=== PATIENT | male | born 1995 | race Two or more races ===

== ENCOUNTER 2016-08-30 19:44 | Emergency (ER) | payer MEDICAID ==
[2016-08-30] MEDS ORDERED: Ondansetron 4 MG/2 ML SDV IVPUSH ONE (20:28)
[2016-08-30] MEDS ORDERED: HYDROmorphone 1 MG/ML Syringe IVPUSH ONE ×2 (20:28→22:06)
[2016-08-30] MEDS ORDERED: Sodium Chloride 0.9% 1,000 ML IV SCH (20:30)
--- NOTE | 2016-08-30 22:13 | EDM.PDOC ---
ED HPI GENERAL MEDICAL PROBLEM - General Chief Complaint: Back Pain or Injury Stated Complaint: BACK PAIN Time Seen by Provider: 08/30/16 19:47 Source of Information: Reports: Patient History Limitations: Reports: No limitations - History of Present Illness INITIAL COMMENTS - FREE TEXT/NARRATIVE: acute low back pain; this is a 21 year old male present to ER for evaluation of back pain. He reports about one month ago, slipped and fell on the ice. Has been seen by his Primary Care Provider, has Physical Therapy order and pending MRI. This morning, bent over to burr picker a paper, felt a pop in his back, has been in terrible pain ever since. Onset: sudden (felt back "pop") Duration: Getting worse Location: Reports: back Quality: Reports: Sharp, Throbbing Severity: severe Improves with: Reports: Rest Worsens with: Reports: Movement Context: Reports: Other (fall on ice one month ago) Treatments DISPENSING OPTICIAN: Reports: Acetaminophen Lower Back Pain Score (Numeric/FACES): 9 - Related Data Allergies Allergy/AdvReac Type Severity Reaction Status Date / Time No Known Allergies Allergy Verified 08/30/16 20:00 Home Meds: Home Meds Prazosin [Minpress] 2 mg PO DAILY 06/10/16 [History] Sertraline [Zoloft] 50 mg PO DAILY 06/10/16 [History] traZODone 50 mg PO BEDTIME 06/10/16 [History] Melatonin 10 mg PO BEDTIME 08/30/16 [History] Orphenadrine [Norflex] 100 mg PO BID 08/30/16 [History] Past Medical History HEENT History: Reports: Other (see below) Other HEENT History: chronic strep throat Cardiovascular History: Reports: Other (see below) 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 Respiratory History: Reports: Sleep apnea, Other (see below) Other Respiratory History: deflated lung Musculoskeletal History: Reports: Fracture Other Musculoskeletal History: thumb Neurological History: Reports: Concussion Psychiatric History: Reports: Anxiety, Depression, Psych Hospitalization(s), Psychosis, PTSD, Suicide attempt, Suicidal ideation, Other (see below) Other Psychiatric History: [address] [facility], currently seeing a counselor at [facility] - Infectious Disease History Infectious Disease History: Reports: Chicken pox, Measles, Mononucleosis Social & Family History - Tobacco Use Smoking Status *Q: Current Every Day Smoker Years of Tobacco use: 5 Packs/Tins Daily: 0.5 - Caffeine Use Caffeine Use: Reports: Soda - Recreational Drug Use Recreational Drug Use: Yes Drug Use in Last 12 Months: Yes Recreational Drug Type: Reports: Marijuana/Hashish Recreational Drug Use Frequency: Rarely - Living Situation & Occupation Living situation: Reports: single, with family (lives with his Mother and family ) Occupation: unemployed ED ROS GENERAL - Review of Systems Review Of Systems: See Below Constitutional: Reports: other (Back pain) HEENT: Reports: No symptoms Respiratory: Reports: No Symptoms Cardiovascular: Reports: No symptoms Endocrine: Reports: no symptoms GI/Abdominal: Reports: No symptoms : Reports: no symptoms Musculoskeletal: Reports: back pain (Radiates to low abdomen and upper thighs reports tingling sensation), muscle pain Skin: Reports: no symptoms Neurological: Reports: No Symptoms, Difficulty Walking (Secondary to pain) Psychiatric: Reports: No symptoms Hematologic/Lymphatic: Reports: no symptoms Immunologic: Reports: no symptoms ED EXAM, GENERAL - Physical Exam Exam: See Below General Appearance: alert, WD/WN, severe distress (Laying curled up on his side on stretcher, when standing body tremors and shakes and appears to be in acute pain), thin Ears: normal external exam Nose: normal inspection Throat/Mouth: Normal inspection Head: atraumatic, normocephalic Neck: normal inspection, supple, non-tender, full range of motion Respiratory/Chest: no respiratory distress, lungs clear, normal breath sounds, no accessory muscle use, chest non-tender Cardiovascular: regular rate, rhythm, no edema, no murmur GI/Abdominal: normal bowel sounds, soft, non tender (Male) Exam: Deferred Rectal (Males) Exam: Deferred Back Exam: decreased range of motion, muscle spasm, paraspinal tenderness, vertebral tenderness Extremities: normal inspection, normal capillary refill, other (Increased pain with straight leg lift) Neurological: alert, oriented, normal reflexes ( 2+ patellar reflexes), abnormal gait (Due to pain) Psychiatric: normal affect, normal mood Skin Exam: Warm, Dry, Intact, Normal color, No rash Lymphatic: no adenopathy Course - Vital Signs Last Recorded V/S: Last Vital Signs Temp 37.0 C 08/30/16 20:15 Pulse 66 08/30/16 22:19 Resp 18 04/20/17 22:19 BP 115/66 04/20/17 22:19 Pulse Ox 99 08/30/16 22:19 - Orders/Labs/Meds Orders: Active Orders 24 hr Category Date Time Status Lumbar Spine wo Cont [CT] Stat Exams 08/30/16 20:29 Taken Labs: Laboratory Tests 08/30/16 08/30/16 Range/Units 21:20 21:20 Urine Color Yellow Urine Appearance Clear Urine pH 8.0 (4.5-8.0) Ur Specific [place] 1.015 (1.008-1.030) Urine Protein Negative (NEGATIVE) mg/dL Urine Glucose (UA) Normal (NEGATIVE) mg/dL Urine Ketones Negative (NEGATIVE) mg/dL Urine Occult Blood Negative (NEGATIVE) Urine Nitrite Negative (NEGAITVE) Urine Bilirubin Negative (NEGATIVE) Urine Urobilinogen Normal (NORMAL) mg/dL Ur Leukocyte Esterase Negative (NEGATIVE) Urine RBC 0-5 (0-5) Urine WBC 0-5 (0-5) Ur Epithelial Cells Rare Amorphous Sediment Rare Urine Bacteria Rare Urine Mucus Few Urine Opiates Screen Negative (NEGATIVE) Ur Oxycodone Screen Negative (NEGATIVE) Urine Methadone Screen Negative (NEGATIVE) Ur Propoxyphene Screen Negative (NEGATIVE) Ur Barbiturates Screen Negative (NEGATIVE) Ur Tricyclics Screen Negative (NEGATIVE) Ur Phencyclidine Scrn Negative (NEGATIVE) Ur Amphetamine Screen Negative (NEGATIVE) U Methamphetamines Scrn Negative (NEGATIVE) Urine MDMA Screen Negative (NEGATIVE) U Benzodiazepines Scrn Negative (NEGATIVE) U Cocaine Metab Screen Negative (NEGATIVE) U Marijuana (THC) Screen Negative (NEGATIVE) Meds: Medications Discontinued Medications Generic Name Dose Route Start Last Admin Trade Name Shira PRN Reason Stop Dose Admin Hydromorphone HCl 1 mg 08/30/16 20:28 08/30/16 20:44 Dilaudid IVPUSH 08/30/16 20:29 1 mg ONETIME ONE Administration Hydromorphone HCl 1 mg 08/30/16 22:06 08/30/16 22:17 Dilaudid IVPUSH 08/30/16 22:07 1 mg ONETIME ONE Administration Sodium Chloride 1,000 mls @ 500 mls/hr 08/30/16 20:30 08/30/16 20:45 Normal Saline IV 500 mls/hr ASDIRECTED STEVEN Administration Ondansetron HCl 4 mg 08/30/16 20:28 08/30/16 20:44 Zofran IVPUSH 08/30/16 20:29 4 mg ONETIME ONE Administration - Radiology Interpretation Free Text/Narrative:: CT of lumbar spine -No acute lumbar spine fracture. Diffuse disc bulge and superimposed central protrusion suspected at L5-S1. This may a bit the adjacent descending nerve roots. Followup nonemergent MRI could be considered for further evaluation. Review of report of CT scan with patient and his mother, copy given for their records. Departure - Departure Time of Disposition: 22:49 Disposition: Home, Self-Care 01 Condition: good Clinical Impression: Bulging lumbar disc Instructions: Back Pain, Adult Referrals: Zac Agrawal MD [Primary Care Provider] - Forms: ED Department Discharge Care Plan Goals: Bulging lumbar disc -Medicate for pain; Percocet one to 2 every 4-6 when necessary pain, ibuprofen or Motrin [id number] 600 mg every 8 hours when necessary pain, Flexeril 10 mg one every 8 hours as needed for muscle spasm, Medrol Dosepak as directed for inflammation -Advised no bending lifting or twisting of spine -Avoid any high impact sports or activities -Will need to followup with primary care provider for a recheck -Return to ER for any increased pain, fever, loss of bowel or bladder function, increased pain or any concerns Given copy of CT lumbar spine, Reviewed with him and his family. - Problem List & Annotations (1) Bulging lumbar disc SNOMED Code(s): 146414016 Code(s): M51.26 - OTHER INTERVERTEBRAL DISC DISPLACEMENT, LUMBAR REGION Status: Acute Priority: High - Problem List Review Problem List Initiated/Reviewed/Updated: Yes - My Orders Last 24 Hours: My Active Orders 08/30/16 20:29 Lumbar Spine wo Cont [CT] Stat - Assessment/Plan Last 24 Hours: My Active Orders 08/30/16 20:29 Lumbar Spine wo Cont [CT] Stat Plan: Bulging lumbar disc -Medicate for pain; Percocet one to 2 every 4-6 when necessary pain, ibuprofen or Motrin [id number] 600 mg every 8 hours when necessary pain, Flexeril 10 mg one every 8 hours as needed for muscle spasm, Medrol Dosepak as directed for inflammation -Advised no bending lifting or twisting of spine -Avoid any high impact sports or activities -Will need to followup with primary care provider for a recheck -Return to ER for any increased pain, fever, loss of bowel or bladder function, increased pain or any concerns Given copy of CT lumbar spine, Reviewed with him and his family.
[2016-08-30 22:20] VITALS: BP 115/66
== END 2016-08-30 22:49 | disposition home or self-care (01) ==
LOC: JP.ED 19:44
DX: M51.26 Other intervertebral disc displacement, lumbar region (principal); F17.210 Nicotine dependence, cigarettes, uncomplicated; Z79.899 Other long term (current) drug therapy
CPT/HCPCS: 72131; 80305; 81001; 96361; 96374; 96375; 96376; 99284; J1170; J2405; J7040

== ENCOUNTER 2018-05-31 16:21 | Emergency (ER) | payer MEDICAID ==
[2018-05-31 16:49] VITALS: BP 131/88
[2018-05-31] MEDS ORDERED: Lidocaine 1% with EPINEPHrine 1:100,000 50 ML MDV INFILT ONE (17:14)
[2018-05-31] MEDS ORDERED: Diphtheria,Pertussis(Acell),Tetanus Vaccine 0.5 ML SDV IM ONE (17:28)
[2018-05-31] MEDS ORDERED: Bacitracin Oint 1 GM U/D Packet TOP ONE (17:29)
--- NOTE | 2018-05-31 17:33 | EDM.PDOC ---
ED HPI GENERAL MEDICAL PROBLEM - General Chief Complaint: Laceration Stated Complaint: CUT FINGER Time Seen by Provider: 05/31/18 17:10 Source of Information: Reports: Patient History Limitations: Reports: No Limitations - History of Present Illness INITIAL COMMENTS - FREE TEXT/NARRATIVE: 23-year-old male cut his index finger of his left hand. This happened 5 hours ago but it is still bleeding so he wanted it checked. 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 Respiratory History: Reports: Sleep Apnea, Other (See Below) Other Respiratory History: deflated lung Musculoskeletal History: Reports: Fracture Other Musculoskeletal History: thumb Neurological History: Reports: Concussion Psychiatric History: Reports: Anxiety, Depression, Psych Hospitalization(s), Psychosis, PTSD, Suicide Attempt, Suicidal Ideation, Other (See Below) Other Psychiatric History: 2011 [place] [facility], currently seeing a counselor at [facility] - Infectious Disease History Infectious Disease History: Reports: Chicken Pox, Measles, Mononucleosis Social & Family History - Tobacco Use Smoking Status *Q: Heavy Tobacco Smoker Years of Tobacco use: 6 Packs/Tins Daily: 0.3 - Caffeine Use Caffeine Use: Reports: Soda - Recreational Drug Use Recreational Drug Use: No - Living Situation & Occupation Living situation: Reports: Single, with Family Occupation: Unemployed ED ROS GENERAL - Review of Systems Review Of Systems: See Below Constitutional: Denies: Fever Respiratory: Denies: Shortness of Breath Cardiovascular: Denies: Chest Pain GI/Abdominal: Denies: Abdominal Pain, Nausea, Vomiting ED EXAM, SKIN/RASH Exam: See Below Exam Limited By: No Limitations General Appearance: Alert, No Apparent Distress Respiratory/Chest: No Respiratory Distress Extremities: Other (Patient's left index finger has a 1 x 1 cm evulsion off the pulp, shallow but into the subcutaneous tissue enough to cause persistent bleeding) Psychiatric: Anxious Course - Vital Signs Last Recorded V/S: Last Vital Signs Temp 98.1 F 05/31/18 16:49 Pulse 65 05/31/18 16:49 Resp 18 05/31/18 16:49 BP 131/88 05/31/18 16:49 Pulse Ox 95 05/31/18 16:49 - Orders/Labs/Meds Orders: Active Orders 24 hr Category Date Time Status Vaccines to be Administered [RC] PER UNIT ROUTINE Care 05/31/18 17:29 Active Meds: Medications Discontinued Medications Generic Name Dose Route Start Last Admin Trade Name Shira PRN Reason Stop Dose Admin Bacitracin 1 dose 05/31/18 17:29 05/31/18 17:34 Bacitracin Oint 1 Gm TOP 05/31/18 17:30 1 dose ONETIME ONE Administration Diphtheria/Tetanus/Acell Pertussis 0.5 ml 05/31/18 17:28 05/31/18 17:33 Adacel IM 05/31/18 17:29 0.5 ml .ONCE ONE Administration Lidocaine/Epinephrine 30 ml 05/31/18 17:14 05/31/18 17:18 Xylocaine 1% With Epinephrine 1:100,000 INFILT 05/31/18 17:15 30 ml ONETIME ONE Administration - Re-Assessments/Exams Free Text/Narrative Re-Assessment/Exam: 05/31/18 17:33 The area was infiltrated with 1% lidocaine with epinephrine, and cauterized until bleeding was controlled. Topical bacitracin and it tube gauze was placed on the finger to be kept until tomorrow. He was also given a DPT booster. He'll keep the wound covered and clean while healing. Departure - Departure Time of Disposition: 17:58 Disposition: Home, Self-Care 01 Condition: Good Clinical Impression: Laceration of finger of left hand Qualifiers: Encounter type: initial encounter Finger: index finger Damage to nail status: without damage Foreign body presence: without foreign body Qualified Code(s): S61.211A - Laceration without foreign body of left index finger without damage to nail, initial encounter - Discharge Information Instructions: Laceration Care, Adult, [id number] Referrals: PCP,None [Primary Care Provider] - Forms: ED Department Discharge Care Plan Goals: Keep wound covered and clean while healing. Recheck if concerns of infection or not healing satisfactorily. - My Orders Last 24 Hours: My Active Orders 05/31/18 17:29 Vaccines to be Administered [RC] PER UNIT ROUTINE - Assessment/Plan Last 24 Hours: My Active Orders 05/31/18 17:29 Vaccines to be Administered [RC] PER UNIT ROUTINE
== END 2018-05-31 17:58 | disposition home or self-care (01) ==
LOC: JP.ED 16:21
DX: S61.211A Laceration without foreign body of left index finger without damage to nail, initial encounter (principal); F17.210 Nicotine dependence, cigarettes, uncomplicated; W45.8XXA Other foreign body or object entering through skin, initial encounter; Z91.030 Bee allergy status; Z91.018 Allergy to other foods; Z79.899 Other long term (current) drug therapy; Z23 Encounter for immunization
CPT/HCPCS: 12001; 90715; 99283-25

== ENCOUNTER 2018-08-05 20:43 | Emergency (ER) | payer MEDICAID ==
[2018-08-05 21:04] VITALS: BP 128/87
--- NOTE | 2018-08-05 21:27 | EDM.PDOC ---
ED HPI GENERAL MEDICAL PROBLEM - General Chief Complaint: Abdominal Pain Stated Complaint: ABD ISSUES Time Seen by Provider: 08/05/18 21:15 Source of Information: Reports: Patient, RN Notes Reviewed History Limitations: Reports: No Limitations - History of Present Illness INITIAL COMMENTS - FREE TEXT/NARRATIVE: 23-year-old gentleman presents emergency department today complaint of abdominal pain, he states he's had pain for about 2 weeks however it is progressively getting worse over the last 3 days does have some nausea he still passing gas his bowel movements range from normal to loose watery stools denies any other symptoms Abdominal Pain Score (Numeric/FACES): 3 - Related Data Allergies Allergy/AdvReac Type Severity Reaction Status Date / Time bee venom protein (honey bee) Allergy Swelling Verified 08/05/18 21:06 blueberry Allergy Hives Verified 08/05/18 21:06 Home Meds: Home Meds Prazosin [Minpress] 2 mg PO DAILY 06/10/16 [History] Past Medical History HEENT History: Reports: Other (See Below) Other HEENT History: chronic strep throat Cardiovascular History: Reports: Other (See Below) Other Cardiovascular History: Pericarditis Respiratory History: Reports: Sleep Apnea, Other (See Below) Other Respiratory History: deflated lung Musculoskeletal History: Reports: Fracture Other Musculoskeletal History: thumb, wrist left Neurological History: Reports: Concussion Psychiatric History: Reports: Anxiety, Depression, Psych Hospitalization(s), Psychosis, PTSD, Suicide Attempt, Suicidal Ideation, Other (See Below) Other Psychiatric History: 2011 [facility], currently seeing a counselor at [facility] - Infectious Disease History Infectious Disease History: Reports: Measles Social & Family History - Family History Family Medical History: Noncontributory - Tobacco Use Smoking Status *Q: Current Every Day Smoker Years of Tobacco use: 5 Packs/Tins Daily: 0.5 - Caffeine Use Caffeine Use: Reports: Coffee, Soda - Recreational Drug Use Recreational Drug Use: Yes Recreational Drug Type: Reports: Marijuana/Hashish - Living Situation & Occupation Living situation: Reports: Single, with Family Occupation: Unemployed ED ROS GENERAL - Review of Systems Review Of Systems: See Below Constitutional: Reports: No Symptoms HEENT: Reports: No Symptoms Respiratory: Reports: No Symptoms Cardiovascular: Reports: No Symptoms GI/Abdominal: Reports: Abdominal Pain, Diarrhea, Flatus, Nausea. Denies: Constipation, Vomiting : Reports: No Symptoms Musculoskeletal: Reports: No Symptoms Skin: Reports: No Symptoms ED EXAM, GI/ABD - Physical Exam Exam: See Below Exam Limited By: No Limitations General Appearance: Alert, WD/WN, No Apparent Distress Respiratory/Chest: No Respiratory Distress, Lungs Clear, Normal Breath Sounds, No Accessory Muscle Use Cardiovascular: Regular Rate, Rhythm, No Murmur GI/Abdominal Exam: Normal Bowel Sounds, Soft, Non-Tender, No Organomegaly, No Distention, No Abnormal Bruit, No Mass. No: Tender Course - Vital Signs Last Recorded V/S: Last Vital Signs Temp 96.9 F 08/05/18 21:07 Pulse 63 08/05/18 21:07 Resp 14 08/05/18 21:07 BP 128/87 08/05/18 21:07 Pulse Ox 100 08/05/18 21:07 - Orders/Labs/Meds Labs: Laboratory Tests 08/05/18 08/05/18 08/05/18 Range/Units 21:37 21:37 21:37 WBC 11.4 H (4.5-11.0) K/uL RBC 5.32 (4.30-5.90) M/uL Hgb 15.2 H (12.0-15.0) g/dL Hct 45.6 (40.0-54.0) % MCV 86 (80-98) fL MCH 29 (27-31) pg MCHC 33 (32-36) % Plt Count 195 (150-400) K/uL Neut % (Auto) 70 H (36-66) % Lymph % (Auto) 21 L (24-44) % Stevens % (Auto) 9 H (2-6) % Eos % (Auto) 1 L (2-4) % Baso % (Auto) 0 (0-1) % Sodium 140 (140-148) mmol/L Potassium 3.5 L (3.6-5.2) mmol/L Chloride 102 (100-108) mmol/L Carbon Dioxide 31 (21-32) mmol/L Anion Gap 10.5 (5.0-14.0) mmol/L BUN 11 (7-18) mg/dL Creatinine 1.1 (0.8-1.3) mg/dL Est Cr Clr Drug Dosing 86.41 mL/min Estimated GFR (MDRD) > 60 (>60) Glucose 100 (74-106) mg/dL Lactic Acid 1.4 (0.4-2.0) mmol/L Calcium 9.4 (8.5-10.1) mg/dL Total Bilirubin 0.8 (0.2-1.0) mg/dL AST 15 (15-37) U/L ALT 21 (12-78) U/L Alkaline Phosphatase 80 (46-116) U/L Total Protein 7.7 (6.4-8.2) g/dL Albumin 4.2 (3.4-5.0) g/dL Globulin 3.5 (2.3-3.5) g/dL Albumin/Globulin Ratio 1.2 (1.2-2.2) Lipase 79 (73-393) U/L Urine Color Urine Appearance Urine pH (4.5-8.0) Ur Specific [place] (1.008-1.030) Urine Protein (NEGATIVE) mg/dL Urine Glucose (UA) (NEGATIVE) mg/dL Urine Ketones (NEGATIVE) mg/dL Urine Occult Blood (NEGATIVE) Urine Nitrite (NEGAITVE) Urine Bilirubin (NEGATIVE) Urine Urobilinogen (NORMAL) mg/dL Ur Leukocyte Esterase (NEGATIVE) Urine RBC (0-5) Urine WBC (0-5) Ur Epithelial Cells Amorphous Sediment Urine Bacteria Urine Mucus 08/05/18 Range/Units 21:43 WBC (4.5-11.0) K/uL RBC (4.30-5.90) M/uL Hgb (12.0-15.0) g/dL Hct (40.0-54.0) % MCV (80-98) fL MCH (27-31) pg MCHC (32-36) % Plt Count (150-400) K/uL Neut % (Auto) (36-66) % Lymph % (Auto) (24-44) % Stevens % (Auto) (2-6) % Eos % (Auto) (2-4) % Baso % (Auto) (0-1) % Sodium (140-148) mmol/L Potassium (3.6-5.2) mmol/L Chloride (100-108) mmol/L Carbon Dioxide (21-32) mmol/L Anion Gap (5.0-14.0) mmol/L BUN (7-18) mg/dL Creatinine (0.8-1.3) mg/dL Est Cr Clr Drug Dosing mL/min Estimated GFR (MDRD) (>60) Glucose (74-106) mg/dL Lactic Acid (0.4-2.0) mmol/L Calcium (8.5-10.1) mg/dL Total Bilirubin (0.2-1.0) mg/dL AST (15-37) U/L ALT (12-78) U/L Alkaline Phosphatase (46-116) U/L Total Protein (6.4-8.2) g/dL Albumin (3.4-5.0) g/dL Globulin (2.3-3.5) g/dL Albumin/Globulin Ratio (1.2-2.2) Lipase (73-393) U/L Urine Color [place] Urine Appearance Clear Urine pH 5.0 (4.5-8.0) Ur Specific [place] 1.010 (1.008-1.030) Urine Protein Negative (NEGATIVE) mg/dL Urine Glucose (UA) Normal (NEGATIVE) mg/dL Urine Ketones Negative (NEGATIVE) mg/dL Urine Occult Blood Trace (NEGATIVE) Urine Nitrite Negative (NEGAITVE) Urine Bilirubin Negative (NEGATIVE) Urine Urobilinogen Normal (NORMAL) mg/dL Ur Leukocyte Esterase Negative (NEGATIVE) Urine RBC 0-5 (0-5) Urine WBC 0-5 (0-5) Ur Epithelial Cells Rare Amorphous Sediment Rare Urine Bacteria Not seen Urine Mucus Rare Departure - Departure Time of Disposition: 22:39 Disposition: Home, Self-Care 01 Condition: Fair Clinical Impression: Abdominal pain Qualifiers: Abdominal location: generalized Qualified Code(s): R10.84 - Generalized abdominal pain - Discharge Information Referrals: PCP,None [Primary Care Provider] - Forms: ED Department Discharge Additional Instructions: Recommend trying Zantac [id number] as needed for a couple days to see if it makes any difference in the abdominal pain, recommend follow-up with primary care the next 5-7 days for reevaluation - Assessment/Plan Plan: Assessment Acuity = acute Site and laterality = abdominal pain Etiology = unclear etiology Manifestations = none Location of injury = Home Lab values = CBC, CMP, lactic acid, lipase, urinalysis all within normal limits plain film the abdomen shows normal bowel gas pattern Plan I did review lab work and abdominal x-rays with him best to follow-up with his primary care the next 5-7 days for reevaluation and continue the workup of abdominal pain he is going to try Zantac [id number] to see if it makes any difference This note was dictated using [employer] voice recognition software please call with any questions on syntax or grammar.
--- NOTE | 2018-08-05 21:51 | CRLCR ---
INDICATION: Pain. TECHNIQUE: Single upright view of the abdomen and upper pelvis. FINDINGS: No free air. Normal abdominal situs. Scattered gas and stool throughout portions of the colon. Paucity of small bowel gas. No radiodense urinary tract calculi. Rotatory lumbar scoliotic curvature convex towards the right. Calcified splenic granulomas. IMPRESSION: Nonspecific bowel gas pattern without obstruction or ileus. No free air. Dictated by Rony Hunter MD @ Aug 05 2018 9:48PM Signed by Dr. Rony Hunter @ Aug 05 2018 9:49PM
== END 2018-08-05 22:46 | disposition home or self-care (01) ==
LOC: JP.ED 20:43
DX: R10.84 Generalized abdominal pain (principal); F17.210 Nicotine dependence, cigarettes, uncomplicated; Z91.030 Bee allergy status; Z91.018 Allergy to other foods
CPT/HCPCS: 36415; 74018; 80053; 81001; 83605; 83690; 85025; 99284-25

== ENCOUNTER 2018-12-14 13:34 | Emergency (ER) | payer MEDICAID ==
[2018-12-14 14:29] VITALS: BP 136/83; PULSE 64
[2018-12-14] MEDS ORDERED: Bacitracin Oint 1 GM U/D Packet TOP ONE (14:41)
--- NOTE | 2018-12-14 14:44 | EDM.PDOC ---
ED HPI GENERAL MEDICAL PROBLEM - General Chief Complaint: Laceration Stated Complaint: LACERATION ON RT THUMB Time Seen by Provider: 12/14/18 14:41 Source of Information: Reports: Patient History Limitations: Reports: No Limitations - History of Present Illness INITIAL COMMENTS - FREE TEXT/NARRATIVE: pt arrived with a laceration at the tip of the rt thumb. This is about 1/8 inch in length. Onset: Today, Sudden Duration: Hour(s): Location: Reports: Upper Extremity, Right Associated Symptoms: Reports: No Other Symptoms Right Finger-Thumb Pain Score (Numeric/FACES): 1 - Related Data Allergies Allergy/AdvReac Type Severity Reaction Status Date / Time bee venom protein (honey bee) Allergy Swelling Verified 08/05/18 21:06 blueberry Allergy Hives Verified 08/05/18 21:06 Home Meds: Home Meds Prazosin [Minpress] 2 mg PO DAILY 06/10/16 [History] Past Medical History HEENT History: Reports: Other (See Below) Other HEENT History: chronic strep throat Cardiovascular History: Reports: Other (See Below) Other Cardiovascular History: Pericarditis Respiratory History: Reports: Sleep Apnea, Other (See Below) Other Respiratory History: deflated lung Musculoskeletal History: Reports: Fracture Other Musculoskeletal History: thumb, wrist left Neurological History: Reports: Concussion Psychiatric History: Reports: Anxiety, Depression, Psych Hospitalization(s), Psychosis, PTSD, Suicide Attempt, Suicidal Ideation, Other (See Below) Other Psychiatric History: 2011 [facility], currently seeing a counselor at [facility] - Infectious Disease History Infectious Disease History: Reports: Measles Social & Family History - Family History Family Medical History: Noncontributory - Tobacco Use Smoking Status *Q: Current Every Day Smoker Years of Tobacco use: 5 Packs/Tins Daily: 0.5 - Caffeine Use Caffeine Use: Reports: Coffee - Recreational Drug Use Recreational Drug Type: Reports: Marijuana/Hashish - Living Situation & Occupation Living situation: Reports: Single, with Family Occupation: Unemployed ED ROS GENERAL - Review of Systems Review Of Systems: See Below Constitutional: Reports: No Symptoms Skin: Reports: Other (laceration at the tip of the rt thumb ) ED EXAM, SKIN/RASH Exam: See Below Text/Narrative:: pt has a superficial laceration at the tip of the rt thumb. Exam Limited By: No Limitations General Appearance: Alert, Anxious Neurological: No: Other (pt has a 1/8inch laceration at the tip of the thumb. ) Course - Vital Signs Last Recorded V/S: Last Vital Signs Temp 37.0 C 12/14/18 14:28 Pulse 64 12/14/18 14:28 Resp 18 12/14/18 14:28 BP 136/83 12/14/18 14:28 Pulse Ox - Orders/Labs/Meds Meds: Medications Discontinued Medications Generic Name Dose Route Start Last Admin Trade Name Shira PRN Reason Stop Dose Admin Bacitracin 1 dose 12/14/18 14:41 12/14/18 14:55 Bacitracin Oint 1 Gm TOP 12/14/18 14:42 1 dose ONETIME ONE Administration Lidocaine HCl 5 ml 12/14/18 14:40 12/14/18 14:40 Xylocaine-Mpf 1% INJECT 12/14/18 14:41 5 ml ONETIME ONE Administration - Re-Assessments/Exams Free Text/Narrative Re-Assessment/Exam: 12/14/18 15:06 pt is current with tetanus. The area was cleansed and infiltrated with lidocaine. The wound was brought together with 3 stitches of 5-0 prolene, It was dressed with bacatracin. Departure - Departure Time of Disposition: 15:07 Disposition: Home, Self-Care 01 Condition: Fair Clinical Impression: Laceration - Discharge Information Instructions: Laceration Care, Adult, [id number] Referrals: PCP,None [Primary Care Provider] - Forms: ED Department Discharge Care Plan Goals: keep dry , no further ointments, suture removal in 7-8 days.
== END 2018-12-14 15:26 | disposition home or self-care (01) ==
LOC: JP.ED 13:34
DX: S61.011A Laceration without foreign body of right thumb without damage to nail, initial encounter (principal); F17.210 Nicotine dependence, cigarettes, uncomplicated; Z91.030 Bee allergy status; Z91.018 Allergy to other foods; Z79.899 Other long term (current) drug therapy; W26.9XXA Contact with unspecified sharp object(s), initial encounter
CPT/HCPCS: 12001; 99282; J2001

== ENCOUNTER 2020-02-18 14:26 | Emergency (ER) | payer MEDICAID, OTHER ==
[2020-02-18] MEDS ORDERED: Bacitracin Oint 1 GM U/D Packet TOP ONE (14:42)
[2020-02-18 14:56] VITALS: BP 133/85; PULSE 65
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
== END 2020-02-18 16:33 | disposition home or self-care (01) ==
LOC: JP.ED 14:26
DX: S61.012A Laceration without foreign body of left thumb without damage to nail, initial encounter (principal); F41.9 Anxiety disorder, unspecified; F32.9 Major depressive disorder, single episode, unspecified; F17.210 Nicotine dependence, cigarettes, uncomplicated; Z91.030 Bee allergy status; Z91.018 Allergy to other foods; Z79.899 Other long term (current) drug therapy; Y99.0 Civilian activity done for income or pay; W26.0XXA Contact with knife, initial encounter
CPT/HCPCS: 12002; 99282; J2001

== ENCOUNTER 2020-05-11 22:25 | Emergency (ER) | payer OTHER, MEDICAID ==
[2020-05-11 22:42] VITALS: BP 121/84; PULSE 67
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
== END 2020-05-12 00:12 | disposition home or self-care (01) ==
LOC: JP.ED 22:25
DX: S39.012A Strain of muscle, fascia and tendon of lower back, initial encounter (principal); F41.9 Anxiety disorder, unspecified; F32.9 Major depressive disorder, single episode, unspecified; F17.210 Nicotine dependence, cigarettes, uncomplicated; Z79.899 Other long term (current) drug therapy; Z91.030 Bee allergy status; Z91.018 Allergy to other foods; V49.50XA Passenger injured in collision with unspecified motor vehicles in traffic accident, initial encounter
CPT/HCPCS: 99282; 99283

== ENCOUNTER 2023-12-16 14:36 | Emergency (ER) | payer MEDICAID ==
[2023-12-16 14:43] VITALS: BP 132/92; PULSE 118
== END 2023-12-16 16:52 | disposition home or self-care (01) ==
LOC: JP.ED 14:36
DX: R10.9 Unspecified abdominal pain (principal); F17.210 Nicotine dependence, cigarettes, uncomplicated; Z91.030 Bee allergy status; Z91.018 Allergy to other foods; Z79.4 Long term (current) use of insulin; Z79.899 Other long term (current) drug therapy; Z86.16 Personal history of COVID-19
CPT/HCPCS: 99282; 99283

== ENCOUNTER 2025-01-18 06:32 | Day surgery (SDC) | payer MEDICAID ==
[2025-01-18 06:56] LABS: PLATELET COUNT,PLT 342.0 K/uL (130-375); RED BLOOD CELL COUNT 5.8 M/uL (4.14-5.76); WHITE BLOOD CELL COUNT,WBC 12.4 K/uL (3.2-11.0)
[2025-01-18] MEDS: Lactated Ringers 1,000 ML IV SCH (07:09)
[2025-01-18 07:18] LABS: A/G RATIO 1.2 (1.2-2.2); ALANINE AMINOTRANSFERASE,ALT 148 U/L (12-78); ASPARTATE AMNIOTRANSFERASE,AST 80 U/L (15-37); BILIRUBIN TOTAL 0.5 mg/dL (0.2-1.0); BLOOD UREA NITROGEN,BUN 16 mg/dL (7-18); CARBON DIOXIDE,CO2 22 mmol/L (21-32); CHLORIDE,CL 98 mmol/L (100-108); CREATININE 0.7 mg/dL (0.8-1.3); EST CRCL DRUG DOSING (CG) 136.82 mL/min; ESTIMATED GFR 127 mL/min (>60); GLUCOSE RANDOM 137 mg/dL (74-106); POTASSIUM,K 3.8 mmol/L (3.6-5.2); PROTEIN TOTAL,TP 8.5 g/dL (6.4-8.2); SODIUM,NA 137 mmol/L (140-148)
[2025-01-18] MEDS ORDERED: fentaNYL 250 MCG/5 ML SDV ONE ×2 (07:23→07:55)
[2025-01-18] MEDS: Indocyanine Green 25 MG SDV IV ONE (07:23)
[2025-01-18] MEDS ORDERED: Succinylcholine 200 MG/10 ML MDV ONE (07:26)
[2025-01-18] MEDS ORDERED: Propofol 200 MG/20 ML SDV ONE (07:26)
[2025-01-18] MEDS ORDERED: Glycopyrrolate 0.2 MG/ML 5 ML MDV ONE (07:26)
[2025-01-18] MEDS ORDERED: Ondansetron 4 MG/2 ML SDV ONE (07:26)
[2025-01-18] MEDS ORDERED: Dexamethasone 4 MG/ML SDV ONE (07:26)
[2025-01-18] MEDS: metroNIDAZOLE/Normal Saline 500 MG in Premix Bag 1 BAG IV ONE (07:32)
[2025-01-18] MEDS ORDERED: Ketorolac 30 MG/ML SDV ONE (08:32)
[2025-01-18] MEDS: fentaNYL 50 MCG/ML SDV IVPUSH ONE (09:34)
[2025-01-18] MEDS: hydrOXYzine HCL 100 MG/2 ML SDV IM ONE (09:35)
[2025-01-18] MEDS ORDERED: Acetaminophen/HYDROcodone 325-5 MG Tab PO PRN (10:07)
[2025-01-18 12:06] VITALS: BP 120/90; PULSE 98
== END 2025-01-18 11:40 | disposition home or self-care (01) ==
LOC: JP.SDS 06:32
PROVIDERS: ATTEND Surgery
DX: K81.1 Chronic cholecystitis (principal); E11.9 Type 2 diabetes mellitus without complications
CPT/HCPCS: 00790; 36415; 47562; 80053; 82947; 85027; A9270; J0131; J0169; J0330; J0665; J0690; J1100; J1596; J1836; J1885; J2405; J2704; J2710; J2795; J3010; J3410; J7120; 88304; J3490

== ENCOUNTER 2025-04-20 21:48 | Emergency (ER) | payer MEDICAID ==
[2025-04-20] MEDS: Ketorolac 30 MG/ML SDV IM ONE (22:45)
[2025-04-20 22:55] VITALS: BP 139/97; PULSE 98
== END 2025-04-20 22:54 | disposition home or self-care (01) ==
LOC: JP.ED 21:48
DX: M54.41 Lumbago with sciatica, right side (principal); F17.200 Nicotine dependence, unspecified, uncomplicated; E10.9 Type 1 diabetes mellitus without complications; Z91.030 Bee allergy status; Z91.018 Allergy to other foods; Z88.8 Allergy status to other drugs, medicaments and biological substances; Z79.899 Other long term (current) drug therapy; Z79.4 Long term (current) use of insulin; Z90.49 Acquired absence of other specified parts of digestive tract
CPT/HCPCS: 96372; 99283; J1885